=== PATIENT | male | born 1985 | race Caucasian/White ===

== ENCOUNTER 2022-01-12 10:36 | Emergency (ER) | payer MEDICAID ==
[~2022-01-12] VITALS: Ht 172.7 cm; Wt 71.7 kg
[2022-01-12 10:48] VITALS: BP 122/78
--- NOTE | 2022-01-12 11:08 | NUR ---
PT IN ROOM 2
[2022-01-12] MEDS ORDERED: KETOROLAC 30 MG/ML VIAL IM ONE (11:35)
--- NOTE | 2022-01-12 11:41 | NUR ---
XRAY AT BEDSIDE
--- NOTE | 2022-01-12 12:24 | NUR ---
PT BACK FROM XRAY
--- NOTE | 2022-01-12 12:36 | NUR ---
JODI CROWDER COLLECTED WALKED TO LAB
--- NOTE | 2022-01-12 12:45 | NUR ---
PT TO CT
--- NOTE | 2022-01-12 12:47 | NUR ---
20G IV CATH PLACED AND LABS COLLECTED
[2022-01-12 12:50] LABS: BASOPHILS % (AUTO) 0.3 % (0.0-2.0); HEMATOCRIT 40.8 % (36-52); LYMPHOCYTES # (AUTO) 2.2 K/uL (2.0-11.5); LYMPHOCYTES % (AUTO) 20.6 % (20.5-51.1); MEAN CORPUSCULAR HEMOGLOBIN 30 pg (27-31); MEAN CORPUSCULAR HGB CONC 34 g/dL (33-37); MEAN CORPUSCULAR VOLUME 86.3 fL (80-94); MONOCYTES # (AUTO) 0.9 K/uL (0.8-1.0); MONOCYTES % (AUTO) 7.9 % (1.7-9.3); NEUTROPHILS # (AUTO) 7.7 K/uL (1.8-7.7); NEUTROPHILS % (AUTO) 71.2 % (42.2-75.2); PLATELET COUNT (AUTO) 277 K/uL (140-450); RED BLOOD CELL COUNT(AUTO) 4.73 MIL/uL (4.20-6.10); RED CELL DISTRIBUTION WIDTH 13.1 % (11.6-13.7); WHITE BLOOD COUNT (AUTO) 10.8 K/uL (4.8-10.8)
--- NOTE | 2022-01-12 13:03 | NUR ---
PT IN [facility]
[2022-01-12 13:20] LABS: ALBUMIN 3.8 g/dL (3.4-5.0); ANION GAP 14.1 (8-16); CARBON DIOXIDE 22.3 mmol/L (21-32); POTASSIUM 3.4 mmol/L (3.5-5.1)
[2022-01-12] MEDS ORDERED: ACET-8386 PO (13:59)
[2022-01-12 14:10] VITALS: BP 101/62
--- NOTE | 2022-01-12 14:10 | NUR ---
Patient discharged with v/s stable. Written and verbal after care instructions given and explained. Patient alert, oriented and verbalized understanding of instructions. Ambulatory with steady gait. All questions addressed prior to discharge. ID band removed. Patient advised to follow up with PMD. Rx of HYDROCODONE given. Patient educated on indication of medication including possible reaction and side effects. Opportunity to ask questions provided and answered.
--- NOTE | 2022-01-12 14:11 | NUR ---
Chart checked and completed. The patient's care was reviewed and supervised by Darlene Zambrano RN.
== END 2022-01-12 14:10 | disposition home or self-care (01) ==
LOC: MED 10:36
DX: S72.115A Nondisplaced fracture of greater trochanter of left femur, initial encounter for closed fracture (principal); Z20.822 Contact with and (suspected) exposure to COVID-19; W18.30XA Fall on same level, unspecified, initial encounter; Y93.89 Activity, other specified; Y92.89 Other specified places as the place of occurrence of the external cause; Y99.8 Other external cause status
CPT/HCPCS: 36415; 72170; 72192; 73552; 80053; 85025; 87426; 96372; 99284; J1885